=== PATIENT | female | born 1950 | race Caucasian/White ===

== ENCOUNTER 2018-04-26 18:47 | Inpatient (IN) | payer MEDICARE, BC ==
[2018-04-26] MEDS ORDERED: DIAZEPAM 5 MG TAB PO (21:00)
[2018-04-26] MEDS ORDERED: QUETIAPINE 25 MG TAB PO (21:00)
[2018-04-26] MEDS ORDERED: oxyCODONE (CR) 10 MG TAB [oxyCONTIN] PO ×2 (21:00)
[2018-04-26] MEDS ORDERED: oxyCODONE 5 MG TAB PO (21:30)
[2018-04-26] MEDS: traMADol 50 MG TAB PO (22:00)
[2018-04-26] MEDS: SENNA TAB PO (22:09)
[2018-04-26] MEDS: oxyCODONE 5 MG TAB PO (22:09)
[2018-04-26] MEDS: ACETAMINOPHEN 500 MG TAB PO (22:10)
[2018-04-26] MEDS: GABAPENTIN 300 MG CAP PO (22:10)
[2018-04-26] MEDS: QUETIAPINE 100 MG TAB PO (22:10)
[2018-04-27] MEDS ORDERED: BISACODYL 10 MG SUPP PR (02:30)
[2018-04-27] MEDS ORDERED: MAGNESIUM CITRATE 300 ML BTL PO (02:30)
[2018-04-27] MEDS: oxyCODONE 5 MG TAB PO ×4 (03:59→22:11)
[2018-04-27] MEDS: ACETAMINOPHEN 500 MG TAB PO ×3 (06:14→21:10)
[2018-04-27] MEDS: traMADol 50 MG TAB PO ×3 (06:15→21:11)
[2018-04-27] MEDS: LEVOTHYROXINE 50 MCG TAB PO (06:15)
[2018-04-27 06:40] LABS: ADD MAN DIFF? NO
[2018-04-27 06:47] LABS: BASOPHILS % 0.3 % (0.0-2.0); EOSINOPHILS # 0.6 10^3/ul (0.0-0.5); EOSINOPHILS % 6.9 % (0.0-7.0); HEMATOCRIT 30.4 % (37.0-47.0); HEMOGLOBIN 9.7 g/dl (12.0-16.0); LYMPHOCYTES # 1.5 10^3/ul (0.8-2.9); LYMPHOCYTES % 16.6 % (15.0-51.0); MEAN CORPUSCULAR HEMOGLOBIN 29.7 pg (29.0-33.0); MEAN CORPUSCULAR HGB CONC 31.9 g/dl (32.0-37.0); MONOCYTE # 0.9 10^3/ul (0.3-0.9); NEUTROPHIL # 5.4 10^3/ul (1.6-7.5); NEUTROPHILS % 62.2 % (39.0-77.0); PLATELET COUNT 465 10^3/UL (140-415); RED BLOOD COUNT 3.27 10^6/ul (4.20-5.40); RED CELL DISTRIBUTION WIDTH 14.6 % (11.5-14.5)
[2018-04-27 06:47] LABS: WHITE BLOOD COUNT 8.7 10^3/ul (4.8-10.8)
[2018-04-27 07:31] LABS: ALANINE AMINOTRANSFERASE 40 IU/L (13-69); ALBUMIN 3.3 g/dl (3.3-4.9); ALBUMIN/GLOBULIN RATIO 1.03; ALKALINE PHOSPHATASE 101 IU/L (42-121); ANION GAP 13 (8-16); ASPARTATE AMINO TRANSFERASE 40 IU/L (15-46); BLOOD UREA NITROGEN 22 mg/dl (7-20); CALCIUM 9.1 mg/dl (8.4-10.2); CARBON DIOXIDE 28 mmol/L (21-31); CHLORIDE 102 mmol/L (97-110); CREATININE 1.02 mg/dl (0.44-1.00); GLUCOSE 91 mg/dl (70-220); POTASSIUM 4.8 mmol/L (3.5-5.1); SODIUM 138 mmol/L (135-144); TOTAL PROTEIN 6.5 g/dl (6.1-8.1)
[2018-04-27 07:55] LABS: ADD UMIC NO; UR ASCORBIC ACID NEGATIVE (NEGATIVE); UR BILIRUBIN (Dip) NEGATIVE (NEGATIVE); UR BLOOD (Dip) NEGATIVE (NEGATIVE); UR CLARITY CLEAR (CLEAR); UR COLOR STRAW (YELLOW); UR GLUCOSE (Dip) NEGATIVE (NEGATIVE); UR KETONES (Dip) NEGATIVE (NEGATIVE); UR LEUKOCYTE ESTERASE (Dip) NEGATIVE Leu/ul (NEGATIVE); UR NITRITE (Dip) NEGATIVE (NEGATIVE); UR SPECIFIC GRAVITY (Dip) 1.009 (1.003-1.030); UR TOTAL PROTEIN (Dip) NEGATIVE (NEGATIVE); UR UROBILINOGEN (Dip) NEGATIVE (NEGATIVE)
[2018-04-27] MEDS: DRONABINOL 2.5 MG CAP PO ×2 (07:58→17:09)
[2018-04-27] MEDS: LIDOCAINE 5% PATCH TD (09:03)
[2018-04-27] MEDS: BUSPIRONE 10 MG TAB PO ×2 (09:03→21:11)
[2018-04-27] MEDS: ATORVASTATIN 20 MG TAB PO (09:03)
[2018-04-27] MEDS: POLYETHYLENE GLYCOL 17 GM PACKET PO ×2 (09:03→21:11)
[2018-04-27] MEDS: DOCUSATE SODIUM 100 MG CAP PO ×2 (09:04→21:11)
[2018-04-27] MEDS: GABAPENTIN 300 MG CAP PO ×3 (09:04→21:11)
[2018-04-27] MEDS: DULOXETINE 30 MG CAP DR PO (09:04)
[2018-04-27] MEDS: BACLOFEN 10 MG TAB PO ×2 (12:14→21:11)
[2018-04-27] MEDS: SENNA TAB PO (21:11)
[2018-04-28] MEDS: oxyCODONE 5 MG TAB PO ×3 (03:15→19:10)
[2018-04-28] MEDS: LEVOTHYROXINE 50 MCG TAB PO (06:18)
[2018-04-28] MEDS: traMADol 50 MG TAB PO ×3 (06:19→22:00)
[2018-04-28] MEDS: ACETAMINOPHEN 500 MG TAB PO ×3 (06:19→22:00)
[2018-04-28] MEDS: DRONABINOL 2.5 MG CAP PO (07:05)
[2018-04-28] MEDS: BUSPIRONE 10 MG TAB PO ×2 (08:22→20:03)
[2018-04-28] MEDS: GABAPENTIN 300 MG CAP PO ×3 (08:23→20:04)
[2018-04-28] MEDS: DULOXETINE 30 MG CAP DR PO (08:23)
[2018-04-28] MEDS: POLYETHYLENE GLYCOL 17 GM PACKET PO ×2 (08:24→20:12)
[2018-04-28] MEDS: DOCUSATE SODIUM 100 MG CAP PO ×2 (08:24→20:11)
[2018-04-28] MEDS: LIDOCAINE 5% PATCH TD (08:25)
[2018-04-28] MEDS: BACLOFEN 10 MG TAB PO ×3 (08:26→20:04)
[2018-04-28] MEDS: QUETIAPINE 100 MG TAB PO (20:03)
[2018-04-28] MEDS: SENNA TAB PO (20:11)
[2018-04-28] MEDS: ATORVASTATIN 20 MG TAB PO (20:14)
[2018-04-29] MEDS: ACETAMINOPHEN 500 MG TAB PO ×3 (05:55→21:46)
[2018-04-29] MEDS: LEVOTHYROXINE 50 MCG TAB PO (05:55)
[2018-04-29] MEDS: traMADol 50 MG TAB PO ×3 (05:56→21:46)
[2018-04-29] MEDS: oxyCODONE 5 MG TAB PO ×2 (06:49→17:50)
[2018-04-29] MEDS: LIDOCAINE 5% PATCH TD (08:46)
[2018-04-29] MEDS: POLYETHYLENE GLYCOL 17 GM PACKET PO ×2 (08:46→20:46)
[2018-04-29] MEDS: BACLOFEN 10 MG TAB PO ×3 (08:47→20:45)
[2018-04-29] MEDS: GABAPENTIN 300 MG CAP PO ×3 (08:47→20:45)
[2018-04-29] MEDS: BUSPIRONE 10 MG TAB PO ×2 (08:47→20:45)
[2018-04-29] MEDS: DOCUSATE SODIUM 100 MG CAP PO ×2 (08:47→20:45)
[2018-04-29] MEDS: DULOXETINE 30 MG CAP DR PO (08:47)
[2018-04-29] MEDS: ATORVASTATIN 20 MG TAB PO (20:45)
[2018-04-29] MEDS: SENNA TAB PO (20:46)
[2018-04-29] MEDS: QUETIAPINE 100 MG TAB PO (21:51)
[2018-04-30] MEDS: traMADol 50 MG TAB PO ×3 (06:31→22:13)
[2018-04-30] MEDS: ACETAMINOPHEN 500 MG TAB PO ×3 (06:31→22:13)
[2018-04-30] MEDS: LEVOTHYROXINE 50 MCG TAB PO (06:31)
[2018-04-30] MEDS: oxyCODONE 5 MG TAB PO ×2 (07:59→20:24)
[2018-04-30] MEDS: BUSPIRONE 10 MG TAB PO ×2 (09:00→20:20)
[2018-04-30] MEDS: POLYETHYLENE GLYCOL 17 GM PACKET PO ×2 (09:00→20:19)
[2018-04-30] MEDS: LIDOCAINE 5% PATCH TD (09:00)
[2018-04-30] MEDS: DOCUSATE SODIUM 100 MG CAP PO ×2 (11:38→20:19)
[2018-04-30] MEDS: DULOXETINE 30 MG CAP DR PO (11:39)
[2018-04-30] MEDS: BACLOFEN 10 MG TAB PO ×3 (11:40→20:19)
[2018-04-30] MEDS: QUETIAPINE 100 MG TAB PO (11:40)
[2018-04-30] MEDS: GABAPENTIN 300 MG CAP PO ×3 (11:40→20:19)
[2018-04-30 14:23] LABS: ADD MAN DIFF? NO
[2018-04-30 14:25] LABS: BASOPHILS % 0.5 % (0.0-2.0); EOSINOPHILS # 0.7 10^3/ul (0.0-0.5); EOSINOPHILS % 8.2 % (0.0-7.0); HEMATOCRIT 32.6 % (37.0-47.0); HEMOGLOBIN 10.5 g/dl (12.0-16.0); LYMPHOCYTES # 1.4 10^3/ul (0.8-2.9); LYMPHOCYTES % 16.2 % (15.0-51.0); MEAN CORPUSCULAR HEMOGLOBIN 29.6 pg (29.0-33.0); MEAN CORPUSCULAR HGB CONC 32.2 g/dl (32.0-37.0); MEAN CORPUSCULAR VOLUME 91.8 fl (82.0-101.0); MONOCYTE # 1.2 10^3/ul (0.3-0.9); MONOCYTES % 13.2 % (0.0-11.0); NEUTROPHIL # 5.4 10^3/ul (1.6-7.5); NEUTROPHILS % 60.5 % (39.0-77.0); PLATELET COUNT 506 10^3/UL (140-415); RED BLOOD COUNT 3.55 10^6/ul (4.20-5.40); RED CELL DISTRIBUTION WIDTH 14.7 % (11.5-14.5)
[2018-04-30 14:25] LABS: WHITE BLOOD COUNT 8.9 10^3/ul (4.8-10.8)
[2018-04-30 14:49] LABS: ANION GAP 13 (8-16); BLOOD UREA NITROGEN 26 mg/dl (7-20); CALCIUM 9.6 mg/dl (8.4-10.2); CARBON DIOXIDE 27 mmol/L (21-31); CHLORIDE 102 mmol/L (97-110); CREATININE 0.97 mg/dl (0.44-1.00); GLUCOSE 97 mg/dl (70-220); POTASSIUM 4.4 mmol/L (3.5-5.1); SODIUM 138 mmol/L (135-144)
[2018-04-30] MEDS: SENNA TAB PO (20:19)
[2018-04-30] MEDS: ATORVASTATIN 20 MG TAB PO (20:19)
[2018-05-01] MEDS: oxyCODONE 5 MG TAB PO ×2 (03:34→21:27)
[2018-05-01] MEDS: ACETAMINOPHEN 500 MG TAB PO ×3 (06:01→22:31)
[2018-05-01] MEDS: traMADol 50 MG TAB PO ×3 (06:01→22:31)
[2018-05-01] MEDS: LEVOTHYROXINE 50 MCG TAB PO (06:01)
[2018-05-01] MEDS: POLYETHYLENE GLYCOL 17 GM PACKET PO ×2 (08:22→20:11)
[2018-05-01] MEDS: LIDOCAINE 5% PATCH TD (08:23)
[2018-05-01] MEDS: BUSPIRONE 10 MG TAB PO ×2 (08:23→20:10)
[2018-05-01] MEDS: GABAPENTIN 300 MG CAP PO ×3 (08:23→20:10)
[2018-05-01] MEDS: DOCUSATE SODIUM 100 MG CAP PO ×2 (08:23→20:12)
[2018-05-01] MEDS: BACLOFEN 10 MG TAB PO ×3 (08:23→20:13)
[2018-05-01] MEDS: DULOXETINE 30 MG CAP DR PO (08:23)
[2018-05-01] MEDS: ATORVASTATIN 20 MG TAB PO (20:11)
[2018-05-01] MEDS: SENNA TAB PO (20:12)
[2018-05-01] MEDS: QUETIAPINE 100 MG TAB PO (22:31)
[2018-05-02] MEDS: ACETAMINOPHEN 500 MG TAB PO ×3 (05:51→21:12)
[2018-05-02] MEDS: LEVOTHYROXINE 50 MCG TAB PO (05:51)
[2018-05-02] MEDS: traMADol 50 MG TAB PO ×3 (05:52→21:13)
[2018-05-02 06:32] LABS: ADD MAN DIFF? NO
[2018-05-02 06:40] LABS: BASOPHIL # 0.1 10^3/ul (0.0-0.1); BASOPHILS % 0.8 % (0.0-2.0); EOSINOPHILS # 0.8 10^3/ul (0.0-0.5); EOSINOPHILS % 8.8 % (0.0-7.0); HEMATOCRIT 32.4 % (37.0-47.0); HEMOGLOBIN 10.3 g/dl (12.0-16.0); LYMPHOCYTES # 1.6 10^3/ul (0.8-2.9); LYMPHOCYTES % 18.7 % (15.0-51.0); MEAN CORPUSCULAR HEMOGLOBIN 29.2 pg (29.0-33.0); MEAN CORPUSCULAR HGB CONC 31.8 g/dl (32.0-37.0); MEAN CORPUSCULAR VOLUME 91.8 fl (82.0-101.0); MEAN PLATELET VOLUME 8.9 fl (7.4-10.4); MONOCYTE # 1.1 10^3/ul (0.3-0.9); MONOCYTES % 12.7 % (0.0-11.0); NEUTROPHIL # 5.1 10^3/ul (1.6-7.5); NEUTROPHILS % 58.3 % (39.0-77.0); PLATELET COUNT 475 10^3/UL (140-415); RED BLOOD COUNT 3.53 10^6/ul (4.20-5.40); RED CELL DISTRIBUTION WIDTH 15.1 % (11.5-14.5)
[2018-05-02 06:40] LABS: WHITE BLOOD COUNT 8.7 10^3/ul (4.8-10.8)
[2018-05-02 06:59] LABS: ANION GAP 13 (8-16); BLOOD UREA NITROGEN 34 mg/dl (7-20); CALCIUM 9.8 mg/dl (8.4-10.2); CARBON DIOXIDE 25 mmol/L (21-31); CHLORIDE 105 mmol/L (97-110); CREATININE 1.11 mg/dl (0.44-1.00); GLUCOSE 106 mg/dl (70-220); MAGNESIUM 2.1 mg/dl (1.7-2.5); PHOSPHORUS 5.9 mg/dl (2.5-4.9); POTASSIUM 4.3 mmol/L (3.5-5.1); SODIUM 139 mmol/L (135-144)
[2018-05-02] MEDS: BACLOFEN 10 MG TAB PO ×3 (09:00→21:15)
[2018-05-02] MEDS: POLYETHYLENE GLYCOL 17 GM PACKET PO ×2 (09:00→21:15)
[2018-05-02] MEDS ORDERED: QUETIAPINE 100 MG TAB PO (11:00)
[2018-05-02] MEDS: GABAPENTIN 300 MG CAP PO ×3 (11:26→21:12)
[2018-05-02] MEDS: BUSPIRONE 10 MG TAB PO ×2 (11:26→21:12)
[2018-05-02] MEDS: FISH OIL 1,000 MG CAP PO (11:26)
[2018-05-02] MEDS: DULOXETINE 30 MG CAP DR PO (11:26)
[2018-05-02] MEDS: DOCUSATE SODIUM 100 MG CAP PO ×2 (11:26→21:13)
[2018-05-02] MEDS ORDERED: DIAZEPAM 2 MG TAB PO (11:30)
[2018-05-02] MEDS: LIDOCAINE 5% PATCH TD (11:49)
[2018-05-02] MEDS: QUETIAPINE 25 MG TAB PO (21:12)
[2018-05-02] MEDS: ATORVASTATIN 20 MG TAB PO (21:12)
[2018-05-02] MEDS: SENNA TAB PO (21:12)
[2018-05-03] MEDS: traMADol 50 MG TAB PO ×2 (05:08→13:42)
[2018-05-03] MEDS: LEVOTHYROXINE 50 MCG TAB PO (05:08)
[2018-05-03] MEDS: ACETAMINOPHEN 500 MG TAB PO ×2 (05:08→13:42)
[2018-05-03] MEDS: LIDOCAINE 5% PATCH TD (09:36)
[2018-05-03] MEDS: DULOXETINE 30 MG CAP DR PO (09:37)
[2018-05-03] MEDS: GABAPENTIN 300 MG CAP PO ×3 (09:37→21:46)
[2018-05-03] MEDS: POLYETHYLENE GLYCOL 17 GM PACKET PO ×2 (09:37→21:46)
[2018-05-03] MEDS: FISH OIL 1,000 MG CAP PO (09:37)
[2018-05-03] MEDS: DOCUSATE SODIUM 100 MG CAP PO ×2 (09:37→21:46)
[2018-05-03] MEDS: BACLOFEN 10 MG TAB PO ×3 (09:37→21:46)
[2018-05-03] MEDS: BUSPIRONE 10 MG TAB PO ×2 (09:38→21:46)
[2018-05-03] MEDS: oxyCODONE 5 MG TAB PO ×2 (09:38→13:37)
[2018-05-03] MEDS: ATORVASTATIN 20 MG TAB PO (21:46)
[2018-05-03] MEDS: QUETIAPINE 100 MG TAB PO (21:46)
[2018-05-03] MEDS: SENNA TAB PO (21:46)
[2018-05-04] MEDS: LEVOTHYROXINE 50 MCG TAB PO (06:15)
[2018-05-04] MEDS: oxyCODONE 5 MG TAB PO ×3 (06:15→21:19)
[2018-05-04 06:33] LABS: ADD MAN DIFF? NO
[2018-05-04 06:44] LABS: BASOPHIL # 0.1 10^3/ul (0.0-0.1); BASOPHILS % 0.8 % (0.0-2.0); EOSINOPHILS # 0.7 10^3/ul (0.0-0.5); EOSINOPHILS % 8.5 % (0.0-7.0); HEMOGLOBIN 10.9 g/dl (12.0-16.0); LYMPHOCYTES # 1.5 10^3/ul (0.8-2.9); LYMPHOCYTES % 17.5 % (15.0-51.0); MEAN CORPUSCULAR HEMOGLOBIN 29.8 pg (29.0-33.0); MEAN CORPUSCULAR HGB CONC 32.1 g/dl (32.0-37.0); MEAN CORPUSCULAR VOLUME 92.9 fl (82.0-101.0); MEAN PLATELET VOLUME 8.9 fl (7.4-10.4); MONOCYTES % 11.7 % (0.0-11.0); NEUTROPHIL # 5.1 10^3/ul (1.6-7.5); NEUTROPHILS % 60.8 % (39.0-77.0); PLATELET COUNT 470 10^3/UL (140-415); RED BLOOD COUNT 3.66 10^6/ul (4.20-5.40)
[2018-05-04 06:44] LABS: WHITE BLOOD COUNT 8.4 10^3/ul (4.8-10.8)
[2018-05-04 06:59] LABS: ANION GAP 15 (8-16); BLOOD UREA NITROGEN 37 mg/dl (7-20); CALCIUM 10.3 mg/dl (8.4-10.2); CARBON DIOXIDE 27 mmol/L (21-31); CHLORIDE 106 mmol/L (97-110); CREATININE 1.16 mg/dl (0.44-1.00); GLUCOSE 123 mg/dl (70-220); MAGNESIUM 2.3 mg/dl (1.7-2.5); POTASSIUM 5.2 mmol/L (3.5-5.1); SODIUM 143 mmol/L (135-144)
[2018-05-04] MEDS: LIDOCAINE 5% PATCH TD (09:19)
[2018-05-04] MEDS: POLYETHYLENE GLYCOL 17 GM PACKET PO ×2 (09:19→20:22)
[2018-05-04] MEDS: FISH OIL 1,000 MG CAP PO (09:20)
[2018-05-04] MEDS: DOCUSATE SODIUM 100 MG CAP PO ×2 (09:20→20:21)
[2018-05-04] MEDS: GABAPENTIN 300 MG CAP PO ×3 (09:20→20:20)
[2018-05-04] MEDS: BACLOFEN 10 MG TAB PO ×3 (09:20→21:19)
[2018-05-04] MEDS: BUSPIRONE 10 MG TAB PO ×2 (09:20→20:20)
[2018-05-04] MEDS: DULOXETINE 30 MG CAP DR PO (09:20)
[2018-05-04] MEDS: ATORVASTATIN 20 MG TAB PO (20:20)
[2018-05-04] MEDS: QUETIAPINE 100 MG TAB PO (20:20)
[2018-05-04] MEDS: SENNA TAB PO (20:21)
[2018-05-05] MEDS: LEVOTHYROXINE 50 MCG TAB PO (06:23)
[2018-05-05] MEDS: oxyCODONE 5 MG TAB PO ×4 (06:23→22:19)
[2018-05-05] MEDS: DOCUSATE SODIUM 100 MG CAP PO ×2 (09:09→20:17)
[2018-05-05] MEDS: BUSPIRONE 10 MG TAB PO ×2 (09:09→20:17)
[2018-05-05] MEDS: POLYETHYLENE GLYCOL 17 GM PACKET PO ×2 (09:09→20:18)
[2018-05-05] MEDS: DULOXETINE 30 MG CAP DR PO (09:09)
[2018-05-05] MEDS: GABAPENTIN 300 MG CAP PO ×3 (09:09→20:17)
[2018-05-05] MEDS: BACLOFEN 10 MG TAB PO ×3 (09:09→21:19)
[2018-05-05] MEDS: FISH OIL 1,000 MG CAP PO (09:09)
[2018-05-05] MEDS: LIDOCAINE 5% PATCH TD (09:10)
[2018-05-05] MEDS: ATORVASTATIN 20 MG TAB PO (20:17)
[2018-05-05] MEDS: SENNA TAB PO (20:18)
[2018-05-06] MEDS: QUETIAPINE 100 MG TAB PO ×2 (02:10→22:37)
[2018-05-06] MEDS: oxyCODONE 5 MG TAB PO ×3 (04:03→20:46)
[2018-05-06] MEDS: LEVOTHYROXINE 50 MCG TAB PO (06:44)
[2018-05-06 07:08] LABS: ADD MAN DIFF? NO
[2018-05-06 07:10] LABS: WHITE BLOOD COUNT 6.3 10^3/ul (4.8-10.8)
[2018-05-06 07:10] LABS: HEMATOCRIT 31.9 % (37.0-47.0); MEAN CORPUSCULAR HEMOGLOBIN 29.1 pg (29.0-33.0); MEAN CORPUSCULAR VOLUME 92.7 fl (82.0-101.0); RED BLOOD COUNT 3.44 10^6/ul (4.20-5.40)
[2018-05-06 07:11] LABS: BASOPHILS % 0.6 % (0.0-2.0); EOSINOPHILS # 0.7 10^3/ul (0.0-0.5); EOSINOPHILS % 11.7 % (0.0-7.0); LYMPHOCYTES # 1.3 10^3/ul (0.8-2.9); LYMPHOCYTES % 20.5 % (15.0-51.0); MEAN CORPUSCULAR HGB CONC 31.3 g/dl (32.0-37.0); MONOCYTE # 0.7 10^3/ul (0.3-0.9); MONOCYTES % 11.4 % (0.0-11.0); NEUTROPHIL # 3.5 10^3/ul (1.6-7.5); NEUTROPHILS % 55.5 % (39.0-77.0); PLATELET COUNT 368 10^3/UL (140-415); RED CELL DISTRIBUTION WIDTH 14.9 % (11.5-14.5)
[2018-05-06 07:32] LABS: ANION GAP 13 (8-16); BLOOD UREA NITROGEN 28 mg/dl (7-20); CALCIUM 9.7 mg/dl (8.4-10.2); CARBON DIOXIDE 27 mmol/L (21-31); CHLORIDE 105 mmol/L (97-110); GLUCOSE 104 mg/dl (70-220); MAGNESIUM 2.2 mg/dl (1.7-2.5); PHOSPHORUS 4.7 mg/dl (2.5-4.9); POTASSIUM 4.6 mmol/L (3.5-5.1); SODIUM 140 mmol/L (135-144)
[2018-05-06] MEDS: BACLOFEN 10 MG TAB PO ×3 (08:53→22:37)
[2018-05-06] MEDS: POLYETHYLENE GLYCOL 17 GM PACKET PO ×2 (08:54→20:45)
[2018-05-06] MEDS: GABAPENTIN 300 MG CAP PO ×3 (08:55→20:44)
[2018-05-06] MEDS: LIDOCAINE 5% PATCH TD ×2 (08:55→13:03)
[2018-05-06] MEDS: FISH OIL 1,000 MG CAP PO (08:55)
[2018-05-06] MEDS: BUSPIRONE 10 MG TAB PO ×2 (08:56→20:45)
[2018-05-06] MEDS: DULOXETINE 30 MG CAP DR PO (08:56)
[2018-05-06] MEDS: DOCUSATE SODIUM 100 MG CAP PO ×2 (08:56→20:45)
[2018-05-06 14:03] LABS: ADD MAN DIFF? NO
[2018-05-06 14:08] LABS: WHITE BLOOD COUNT 6.2 10^3/ul (4.8-10.8)
[2018-05-06 14:08] LABS: BASOPHILS % 0.6 % (0.0-2.0); EOSINOPHILS # 0.7 10^3/ul (0.0-0.5); EOSINOPHILS % 11.2 % (0.0-7.0); HEMATOCRIT 31.5 % (37.0-47.0); HEMOGLOBIN 9.8 g/dl (12.0-16.0); LYMPHOCYTES # 1.3 10^3/ul (0.8-2.9); LYMPHOCYTES % 20.2 % (15.0-51.0); MEAN CORPUSCULAR HEMOGLOBIN 29.2 pg (29.0-33.0); MEAN CORPUSCULAR HGB CONC 31.1 g/dl (32.0-37.0); MEAN CORPUSCULAR VOLUME 93.8 fl (82.0-101.0); MEAN PLATELET VOLUME 9.4 fl (7.4-10.4); MONOCYTE # 0.7 10^3/ul (0.3-0.9); MONOCYTES % 10.6 % (0.0-11.0); NEUTROPHIL # 3.6 10^3/ul (1.6-7.5); NEUTROPHILS % 56.9 % (39.0-77.0); PLATELET COUNT 357 10^3/UL (140-415); RED BLOOD COUNT 3.36 10^6/ul (4.20-5.40); RED CELL DISTRIBUTION WIDTH 14.9 % (11.5-14.5)
[2018-05-06 14:21] LABS: ANION GAP 13 (8-16); BLOOD UREA NITROGEN 26 mg/dl (7-20); CALCIUM 9.5 mg/dl (8.4-10.2); CARBON DIOXIDE 28 mmol/L (21-31); CHLORIDE 101 mmol/L (97-110); CREATININE 0.96 mg/dl (0.44-1.00); GLUCOSE 102 mg/dl (70-220); POTASSIUM 4.1 mmol/L (3.5-5.1); SODIUM 138 mmol/L (135-144)
[2018-05-06] MEDS: SENNA TAB PO (20:45)
[2018-05-06] MEDS: ATORVASTATIN 20 MG TAB PO (20:45)
[2018-05-07] MEDS: oxyCODONE 5 MG TAB PO ×3 (02:08→13:15)
[2018-05-07] MEDS: LEVOTHYROXINE 50 MCG TAB PO (06:42)
[2018-05-07] MEDS: POLYETHYLENE GLYCOL 17 GM PACKET PO ×2 (09:22→21:22)
[2018-05-07] MEDS: BACLOFEN 10 MG TAB PO ×3 (09:23→21:21)
[2018-05-07] MEDS: BUSPIRONE 10 MG TAB PO ×2 (09:23→21:22)
[2018-05-07] MEDS: FISH OIL 1,000 MG CAP PO (09:24)
[2018-05-07] MEDS: GABAPENTIN 300 MG CAP PO ×3 (09:24→21:21)
[2018-05-07] MEDS: DULOXETINE 30 MG CAP DR PO (09:24)
[2018-05-07] MEDS: DOCUSATE SODIUM 100 MG CAP PO ×2 (09:24→21:21)
[2018-05-07] MEDS: SENNA TAB PO (21:22)
[2018-05-07] MEDS: ATORVASTATIN 20 MG TAB PO (21:22)
[2018-05-07] MEDS: QUETIAPINE 100 MG TAB PO (23:34)
[2018-05-08] MEDS: oxyCODONE 5 MG TAB PO ×3 (01:32→15:36)
[2018-05-08] MEDS: LEVOTHYROXINE 50 MCG TAB PO (06:09)
[2018-05-08] MEDS: POLYETHYLENE GLYCOL 17 GM PACKET PO ×2 (08:58→21:08)
[2018-05-08] MEDS: LIDOCAINE 5% PATCH TD (08:58)
[2018-05-08] MEDS: FISH OIL 1,000 MG CAP PO (08:59)
[2018-05-08] MEDS: DULOXETINE 30 MG CAP DR PO (08:59)
[2018-05-08] MEDS: DOCUSATE SODIUM 100 MG CAP PO ×2 (08:59→21:08)
[2018-05-08] MEDS: GABAPENTIN 300 MG CAP PO ×4 (08:59→21:08)
[2018-05-08] MEDS: BACLOFEN 10 MG TAB PO ×4 (08:59→23:04)
[2018-05-08] MEDS: BUSPIRONE 10 MG TAB PO ×2 (08:59→21:08)
[2018-05-08] MEDS: SENNA TAB PO (21:08)
[2018-05-08] MEDS: ATORVASTATIN 20 MG TAB PO (21:08)
[2018-05-08] MEDS: QUETIAPINE 100 MG TAB PO (23:04)
[2018-05-09] MEDS: oxyCODONE 5 MG TAB PO ×2 (05:48→11:09)
[2018-05-09] MEDS: LEVOTHYROXINE 50 MCG TAB PO (05:48)
[2018-05-09] MEDS: GABAPENTIN 300 MG CAP PO ×3 (08:38→20:29)
[2018-05-09] MEDS: POLYETHYLENE GLYCOL 17 GM PACKET PO ×2 (08:39→20:27)
[2018-05-09] MEDS: BACLOFEN 10 MG TAB PO ×3 (08:39→21:52)
[2018-05-09] MEDS: BUSPIRONE 10 MG TAB PO ×2 (08:39→20:29)
[2018-05-09] MEDS: LIDOCAINE 5% PATCH TD (08:39)
[2018-05-09] MEDS: FISH OIL 1,000 MG CAP PO (08:39)
[2018-05-09] MEDS: DULOXETINE 30 MG CAP DR PO (08:39)
[2018-05-09] MEDS: DOCUSATE SODIUM 100 MG CAP PO ×2 (08:39→20:28)
[2018-05-09] MEDS: MAGNESIUM HYDROXIDE 30ML CUP PO (12:25)
[2018-05-09] MEDS: LACTULOSE 30ML CUP PO (16:37)
[2018-05-09] MEDS: SENNA TAB PO (20:28)
[2018-05-09] MEDS: ATORVASTATIN 20 MG TAB PO (20:29)
[2018-05-09] MEDS: QUETIAPINE 100 MG TAB PO (20:29)
[2018-05-10] MEDS: LEVOTHYROXINE 50 MCG TAB PO (05:38)
[2018-05-10] MEDS: oxyCODONE 5 MG TAB PO ×2 (06:35→12:02)
[2018-05-10] MEDS: POLYETHYLENE GLYCOL 17 GM PACKET PO (09:00)
[2018-05-10] MEDS: DOCUSATE SODIUM 100 MG CAP PO (09:00)
[2018-05-10] MEDS: DULOXETINE 30 MG CAP DR PO (09:28)
[2018-05-10] MEDS: FISH OIL 1,000 MG CAP PO (09:28)
[2018-05-10] MEDS: BUSPIRONE 10 MG TAB PO (09:28)
[2018-05-10] MEDS: GABAPENTIN 300 MG CAP PO ×2 (09:29→12:02)
[2018-05-10] MEDS: LIDOCAINE 5% PATCH TD (09:30)
[2018-05-10] MEDS: BACLOFEN 10 MG TAB PO (09:31)
== END 2018-05-10 12:13 | DRG 559 ==
LOC: VRC 18:47
PROC: F07Z5ZZ Bed Mobility Treatment (ICD-10-PCS; principal; 2018-04-26)
PROC: F08Z2ZZ Grooming/Personal Hygiene Treatment (ICD-10-PCS; 2018-04-26)
DX: Z47.89 Encounter for other orthopedic aftercare (principal); J96.00 Acute respiratory failure, unspecified whether with hypoxia or hypercapnia; D62 Acute posthemorrhagic anemia; F33.9 Major depressive disorder, recurrent, unspecified; M43.26 Fusion of spine, lumbar region; M79.7 Fibromyalgia; E03.9 Hypothyroidism, unspecified; F41.9 Anxiety disorder, unspecified; R07.9 Chest pain, unspecified; E78.5 Hyperlipidemia, unspecified; K27.9 Peptic ulcer, site unspecified, unspecified as acute or chronic, without hemorrhage or perforation; N28.9 Disorder of kidney and ureter, unspecified
CPT/HCPCS: 71045; 80048; 80053; 81003; 83735; 84100; 85025; 87081; 87086; 93005; 97110; 97112; 97116; 97163; 97166; 97530; 97535